=== PATIENT | female | born 1955 | race Caucasian/White ===

== ENCOUNTER → 2017-02-08 | Outpatient (CLI) | payer BC | LOC: CIMAGING 08:39 | PROVIDERS: ATTEND Nurse Practitioner Family | DX: R10.2 Pelvic and perineal pain (principal); R93.8 Abnormal findings on diagnostic imaging of other specified body structures | CPT/HCPCS: 76856-PO ==

== ENCOUNTER → 2018-03-22 | Outpatient (CLI) | payer BC | LOC: FIMAGING 11:17 | PROVIDERS: ATTEND Family Medicine | DX: M31.6 Other giant cell arteritis (principal); M81.0 Age-related osteoporosis without current pathological fracture ==

== ENCOUNTER → 2018-11-22 | Outpatient (CLI) | payer BC | LOC: FIMAGING 12:59 | PROVIDERS: ATTEND Family Medicine | DX: Z12.31 Encounter for screening mammogram for malignant neoplasm of breast (principal) ==